=== PATIENT | female | born 1940 | race Caucasian/White ===

== ENCOUNTER 2022-05-22 11:18 | Outpatient (CLI) | payer MEDICARE, OTHER | END 2022-05-22 11:19 | disposition home or self-care (01) | LOC: SCSCT 11:18 | PROVIDERS: ATTEND Family Medicine | DX: S09.90XA Unspecified injury of head, initial encounter (principal); R39.9 Unspecified symptoms and signs involving the genitourinary system | CPT/HCPCS: 70450; 87086 ==